=== PATIENT | female | born 1970 | race Caucasian/White ===

== ENCOUNTER 2017-12-28 01:26 | Emergency (ER) | payer BC ==
--- NOTE | 2017-12-28 02:17 | ER Document Report ---
ED GI/ - General Chief Complaint: Abdominal Pain Stated Complaint: VOMITING Time Seen by Provider: 12/28/17 02:04 Notes: Patient is a 47-year-old female that comes emergency department for chief complaint of sharp pain in her epigastric area and no vomiting. She states symptoms started this evening, she vomited several times, she states that she was told in the past that she had "gallbladder sludge", states that she did have fatty foods earlier today and thinks this is the reason. She denies flank pain, fever, lower abdominal pain. Patient denies any surgeries, daily medications, or medical problems. She denies any alcohol or smoking. LMP within the past week. - Related Data Allergies/Adverse Reactions: azithromycin Allergy (Verified 12/28/17 01:27) Past Medical History - General Information source: Patient - Social History Smoking Status: Never Smoker Frequency of alcohol use: None Drug Abuse: None Lives with: Family Family History: Reviewed & Not Pertinent - Medical History Medical History: Negative Surgical Hx: Negative - Immunizations Immunizations up to date: Yes Hx Diphtheria, Pertussis, Tetanus Vaccination: Yes Review of Systems - Review of Systems Constitutional: No symptoms reported EENT: No symptoms reported Cardiovascular: No symptoms reported Respiratory: No symptoms reported Gastrointestinal: See HPI Genitourinary: No symptoms reported Female Genitourinary: No symptoms reported Musculoskeletal: No symptoms reported Skin: No symptoms reported Hematologic/Lymphatic: No symptoms reported Neurological/Psychological: No symptoms reported Physical Exam - Vital signs Vitals: Temp Pulse Resp BP Pulse Ox 98 F 77 18 110/57 L 98 12/28/17 01:32 12/28/17 01:32 12/28/17 01:32 12/28/17 01:32 12/28/17 01:32 Interpretation: Normal - General General appearance: Appears well In distress: None - HEENT Head: Normocephalic, Atraumatic Eyes: Normal Pupils: PERRL - Respiratory Respiratory status: No respiratory distress Chest status: Nontender Breath sounds: Normal Chest palpation: Normal - Cardiovascular Rhythm: Regular Heart sounds: Normal auscultation Murmur: No - Abdominal Inspection: Normal Distension: No distension Bowel sounds: Normal Tenderness: Nontender. No: Tender, McBurney's point, Vargas's sign, Guarding Organomegaly: No organomegaly - Back Back: Normal, Nontender - Extremities General upper extremity: Normal inspection, Nontender, Normal color, Normal ROM , Normal temperature General lower extremity: Normal inspection, Nontender, Normal color, Normal ROM , Normal temperature, Normal weight bearing. No: Mery's sign - Neurological Neuro grossly intact: Yes Cognition: Normal Orientation: AAOx4 Chen Coma Scale Eye Opening: Spontaneous Chen Coma Scale Verbal: Oriented Chen Coma Scale Motor: Obeys Commands [place] Coma Scale Total: 15 Speech: Normal Motor strength normal: LUE, RUE, LLE, RLE Sensory: Normal - Psychological Associated symptoms: Normal affect, Normal mood - Skin Skin Temperature: Warm Skin Moisture: Dry Skin Color: Normal Course - Re-evaluation Re-evalutation: Patient symptoms resolved before I saw her, she has a soft abdomen, no current complaints. Unremarkable vital signs. Generally very healthy patient. Discussed with patient, she is requesting workup for her gallbladder despite this. CBC, chemistry, lipase unremarkable, hCG is negative. Right upper quadrant ultrasound with no concerning abnormalities at all. Provided patient with a copy of her report, discussed recommendations, follow-up , return precautions. Patient states satisfaction and agreement. - Vital Signs Vital signs: Temp Pulse Resp BP Pulse Ox 98.7 F 74 18 122/88 H 96 12/28/17 04:01 12/28/17 04:01 12/28/17 01:32 12/28/17 04:01 12/28/17 04:01 - Laboratory Result Diagrams: 12/28/17 02:25 12/28/17 02:25 Laboratory results interpreted by me: 12/28/17 12/28/17 02:25 02:25 Plt Count 139 L Seg Neutrophils % 89.5 H Lymphocytes % 5.8 L Absolute Neutrophils 9.3 H Glucose 114 H Discharge - Discharge Clinical Impression: Epigastric pain Vomiting Qualifiers: Vomiting type: unspecified Vomiting Intractability: non-intractable Nausea presence: with nausea Qualified Code(s): R11.2 - Nausea with vomiting, unspecified Condition: Stable Disposition: HOME, SELF-CARE Additional Instructions: Your evaluation tonight does not show any concerning abnormalities. Based on your symptoms exam, workup I suspect that you either have gallbladder dyskinesis or gastritis/esophagitis. Recommend that you take the Pepcid and Carafate as prescribed, avoid NSAIDs, caffeine, alcohol, smoking, spicy foods. Further evaluation for gallbladder dyskinesis is a HIDA scan (which if abnormal can ultimately lead to surgical removal of the gallbladder). Follow-up with primary care for this. Avoid fatty foods for reduced symptoms if this is the problem. Return if you worsen including severe pain, uncontrolled vomiting, vomiting blood, black stools, or any other concerning or worsening symptoms. Prescriptions: Famotidine [Pepcid 20 mg Tablet] 20 mg PO BID #20 tablet Sucralfate [Carafate 1 gm Tablet] 1 gm PO QID #20 tablet Forms: Treatment of Relative/Child Referrals: MAKAYLA BURROWS, [Primary Care Provider] - Follow up as needed
[2017-12-28 02:39] LABS: ABSOLUTE LYMPHOCYTES (AUTO) 0.6 10^3/uL (0.5-4.7); ABSOLUTE MONOCYTES (AUTO) 0.4 10^3/uL (0.1-1.4); ABSOLUTE NEUT (AUTO) 9.3 10^3/uL (1.7-8.2); BASOPHILS % (AUTO) 0.3 % (0-2); EOSINOPHILS % (AUTO) 0.2 % (0-6); LYMPHOCYTES % (AUTO) 5.8 % (13-45); MEAN CORPUSCULAR HEMOGLOBIN 31.7 pg (27.0-33.4); MEAN CORPUSCULAR VOLUME 93 fl (80-97); MONOCYTES % (AUTO) 4.2 % (3-13); PLATELET COUNT 139 10^3/uL (150-450); RED BLOOD COUNT 4.41 10^6/uL (3.72-5.28); RED CELL DISTRIBUTION WIDTH 13.5 % (11.5-14.0); SEGMENTED NEUTROPHILS % (AUTO) 89.5 % (42-78); TOTAL CELLS COUNTED % (AUTO) 100 %; WHITE BLOOD COUNT 10.4 10^3/uL (4.0-10.5)
[2017-12-28 02:50] LABS: ALANINE AMINOTRANSFERASE 30 U/L (9-52); ALBUMIN 4.5 g/dL (3.5-5.0); ALKALINE PHOSPHATASE 85 U/L (38-126); ANION GAP 12 (5-19); ASPARTATE AMINO TRANSFERASE 29 U/L (14-36); BILIRUBIN,DIRECT 0.3 mg/dL (0.0-0.4); BILIRUBIN,TOTAL 0.5 mg/dL (0.2-1.3); BLOOD UREA NITROGEN 19 mg/dL (7-20); CALCIUM 9.6 mg/dL (8.4-10.2); CARBON DIOXIDE 25 mmol/L (22-30); CHLORIDE 104 mmol/L (98-107); GLUCOSE 114 mg/dL (75-110); LIPASE 92.3 U/L (23-300); POTASSIUM 3.9 mmol/L (3.6-5.0); TOTAL PROTEIN 7.4 g/dL (6.3-8.2)
--- NOTE | 2017-12-28 03:27 | RADIOLOGY REPORT (SQ) ---
EXAM DESCRIPTION: U/S ABDOMEN LIMITED W/O DOP CLINICAL HISTORY: 47 years, Female, epigastric pain, vomiting COMPARISON: None. LIMITATIONS: None. FINDINGS: Gallbladder, negative sonographic Vargas's test, intra and extrahepatic ductal system including 0.3 cm diameter common bile duct, liver, pancreas, aorta, and 9 cm right kidney appear unremarkable. No ascites. IMPRESSION: Normal RUQ-abdominal sonogram.
[2017-12-28 04:02] VITALS: BP 122/88
== END 2017-12-28 04:01 | disposition home or self-care (01) ==
LOC: ER 01:26
DX: R10.13 Epigastric pain (principal); R11.2 Nausea with vomiting, unspecified
CPT/HCPCS: 36415; 76705; 80053; 81025; 83690; 85025; 99284